=== PATIENT | male | born 1970 | race Caucasian/White ===

== ENCOUNTER 2019-01-04 21:48 | Emergency (ER) | payer OTHER ==
[~2019-01-04] VITALS: Ht 165.1 cm; Wt 81.6 kg
[2019-01-04 21:56] VITALS: BP 144/90
--- NOTE | 2019-01-04 23:02 | NUR ---
PT AMBULATED TO ER BED 06
--- NOTE | 2019-01-04 23:07 | NUR ---
48 Y/O MALE C/O SHARP CHEST PAIN UPON INHALATION X1 WEEK. PT STATES PAIN IS INTERMITTENT 5/10 PAIN. RR EVEN AND UNLABORED. CAP REFILL <2 SECONDS. LUNG SOUNDS CLEAR THROUGHOUT. PT SITTING UPRIGHT IN BED POSITIONED FOR COMFORT. PT PLACED ON MONITOR. VSS. SON AT BEDSIDE. MEDHX: DENIES ALLERGIES: DENIES
--- NOTE | 2019-01-04 23:12 | NUR ---
O2 SAT 91% ON ROOM AIR WHILE SITTING UPRIGHT. PT PLACED ON 2L NC AT THIS TIME.
--- NOTE | 2019-01-04 23:52 | NUR ---
Dr. Conti examining patient.
[2019-01-05 00:19] VITALS: BP 127/81
== END 2019-01-05 00:19 | disposition home or self-care (01) ==
LOC: MED 21:48
DX: R07.9 Chest pain, unspecified (principal)
CPT/HCPCS: 71045; 99283